=== PATIENT | male | born 1950 | race Caucasian/White ===

== ENCOUNTER 2016-12-11 06:55 | Emergency (ER) | payer OTHER ==
--- NOTE | 2016-12-12 19:19 | ER ---
ADMIT: 12/11/2016 RM/LOC: ER [facility] MR#: [id number] [facility] [id number] [place], [place] [id number] ONELIA BLOUNT [address] [place] [id number] Emergency Room Report SEX: M AGE: 66 : 1950 DATE: 12/11/2016 ADDENDUM: A 66-year-old white male came in with left flank pain. CT shows he has a kidney stone at the UV junction on the left which is where his pain is. He has no other associated complaints at this time. He has a 3-mm small stone at left UVJ which he should be able to pass that. He also needs follow up as needed. CONDITION ON DISCHARGE: Good. Jamie Gill MD/ dang JOB #: [id number] CC: Jamie Gill MD, Attending Physician Other Physician, Family Physician
== END 2016-12-11 09:15 | disposition home or self-care (01) ==
LOC: ER 06:55
DX: N13.2 Hydronephrosis with renal and ureteral calculous obstruction (principal); E78.5 Hyperlipidemia, unspecified; Z79.899 Other long term (current) drug therapy